=== PATIENT | female | born 1965 | race Caucasian/White ===

== ENCOUNTER 2016-11-16 13:55 | Emergency (ER) | payer MEDICARE ==
--- NOTE | 2016-11-16 15:03 | ER Document Report ---
ED Medical Screen (RME) - General Chief Complaint: Back Pain Stated Complaint: BACK PAIN Time Seen by Provider: 11/16/16 14:51 Mode of Arrival: Medic Information source: Patient Notes: Presents complaining of nausea and low back pain. Patient states that she suspects that she has a worsening UTI that is starting to affect her kidneys. Patient states that she was recently discharged from the hospital in [place] last week for UTI in addition to C. difficile. Patient states that she has been on Flagyl in the past and has had a fecal transplant in attempt to resolve her C. difficile. Patient states that she has had frequent problems with UTIs that are difficult to treat and states that her last UTI was only susceptible to 2 different antibiotics. Patient also reports that she has frequent hypokalemia and hypomagnesemia, and suspects this today. Patient does report increased peripheral edema. Patient has currently been taking vancomycin hx: Diabetes, CHF, DVT, PE TRAVEL OUTSIDE OF THE [place] IN LAST 30 DAYS: No - Related Data Allergies/Adverse Reactions: naproxen [From Aleve] Allergy (Verified 11/16/16 14:08) Penicillins Allergy (Verified 11/16/16 14:08) Past Medical History Renal/ Medical History: Denies: Hx Peritoneal Dialysis Physical Exam - Vital signs Vitals: Temp Pulse Resp BP Pulse Ox 98.9 F 103 H 20 151/79 H 96 11/16/16 14:06 11/16/16 14:06 11/16/16 14:06 11/16/16 14:06 11/16/16 14:06 - Back Back: CVA tenderness - bilat Course - Vital Signs Vital signs: Temp Pulse Resp BP Pulse Ox 98.9 F 103 H 20 151/79 H 96 11/16/16 14:06 11/16/16 14:06 11/16/16 14:06 11/16/16 14:06 11/16/16 14:06
[2016-11-16 16:11] LABS: ABSOLUTE BASOPHILS # (AUTO) 0.1 10^3/uL (0.0-0.2); ABSOLUTE EOSINOPHILS # (AUTO) 0.1 10^3/uL (0.0-0.6); ABSOLUTE LYMPHOCYTES (AUTO) 1.1 10^3/uL (0.5-4.7); ABSOLUTE MONOCYTES (AUTO) 0.4 10^3/uL (0.1-1.4); ABSOLUTE NEUT (AUTO) 4.5 10^3/uL (1.7-8.2); BASOPHILS % (AUTO) 1.3 % (0-2); EOSINOPHILS % (AUTO) 0.9 % (0-6); HEMATOCRIT 32.8 % (36.0-47.0); HEMOGLOBIN 10.5 g/dL (12.0-15.5); HGB HCT DIFFERENCE -1.3; LYMPHOCYTES % (AUTO) 17.7 % (13-45); MEAN CORPUSCULAR HEMOGLOBIN 25.5 pg (27.0-33.4); MEAN CORPUSCULAR HGB CONC 31.9 g/dL (32.0-36.0); MEAN CORPUSCULAR VOLUME 80 fl (80-97); RED CELL DISTRIBUTION WIDTH 16.7 % (11.5-14.0); SEGMENTED NEUTROPHILS % (AUTO) 73.1 % (42-78); WHITE BLOOD COUNT 6.2 10^3/uL (4.0-10.5)
[2016-11-16 16:26] LABS: ALANINE AMINOTRANSFERASE 22 U/L (9-52); ALBUMIN 3.2 g/dL (3.5-5.0); ALKALINE PHOSPHATASE 133 U/L (38-126); ANION GAP 12 (5-19); ASPARTATE AMINO TRANSFERASE 12 U/L (14-36); BILIRUBIN,DIRECT 0.4 mg/dL (0.0-0.4); BILIRUBIN,TOTAL 0.6 mg/dL (0.2-1.3); BLOOD UREA NITROGEN 22 mg/dL (7-20); CALCIUM 8.9 mg/dL (8.4-10.2); CARBON DIOXIDE 23 mmol/L (22-30); CHLORIDE 110 mmol/L (98-107); CREATININE RESULT 1.51 mg/dL (0.52-1.25); GLUCOSE 152 mg/dL (75-110); MAGNESIUM 1.6 mg/dL (1.6-2.3); TOTAL PROTEIN 6.2 g/dL (6.3-8.2)
[2016-11-16 16:30] LABS: POTASSIUM 2.7 mmol/L (3.6-5.0)
[2016-11-16] MEDS ORDERED: LEVOFLOXACIN RTU 750 MG/D5W 150 ML IV ONE (17:27)
[2016-11-16] MEDS ORDERED: POTASSIUM CHLORIDE 10 MEQ TABLET.SA PO ONE (17:28)
[2016-11-16] MEDS ORDERED: ONDANSETRON 4 MG TAB.RAPDIS PO ONE (18:25)
[2016-11-16] MEDS ORDERED: OXYCODONE-ACETAMINOPHEN 5-325 MG TABLET PO ONE (18:25)
[2016-11-16 18:42] LABS: APPEARANCE,URINE SLIGHTLY-CLOUDY; BILIRUBIN,URINE NEGATIVE (NEGATIVE); GLUCOSE, URINE 150 mg/dL (NEGATIVE); KETONES,URINE NEGATIVE (NEGATIVE); LEUKOCYTE ESTERASE,URINE NEGATIVE (NEGATIVE); NITRITE,URINE POSITIVE (NEGATIVE); PROTEIN,URINE >=500 mg/dL (NEGATIVE); URINE SPECIFIC GRAVITY 1.025; UROBILINOGEN,URINE NEGATIVE mg/dL (<2.0)
--- NOTE | 2016-11-16 19:48 | ER Document Report ---
ED General - General Chief Complaint: Back Pain Stated Complaint: BACK PAIN Time Seen by Provider: 11/16/16 14:51 Mode of Arrival: Ambulatory Information source: Patient TRAVEL OUTSIDE OF THE [place] IN LAST 30 DAYS: No - HPI Onset: This morning Onset/Duration: Gradual Quality of pain: Achy, Dull Severity: Moderate Associated symptoms: Chills, Nausea. denies: Diarrhea, Vomiting, Shortness of breath Exacerbated by: Denies Relieved by: Denies Similar symptoms previously: Yes - TYPICAL, W/ FREQUENT UTI's Recently seen / treated by doctor: No Notes: RECENTLY MOVED TO [facility] [place], HAS NO LOCAL PCP. - Related Data Allergies/Adverse Reactions: naproxen [From Aleve] Allergy (Verified 11/16/16 14:08) Penicillins Allergy (Verified 11/16/16 14:08) Past Medical History - General Information source: Patient - Social History Smoking Status: Unknown if Ever Smoked Cigarette use (# per day): No Chew tobacco use (# tins/day): No Frequency of alcohol use: None Drug Abuse: None Lives with: Family Family History: Reviewed & Not Pertinent Patient has suicidal ideation: No Patient has homicidal ideation: No - Past Medical History Cardiac Medical History: Reports: Hx Congestive Heart Failure Endocrine Medical History: Reports: Hx Diabetes Mellitus Type 1 Renal/ Medical History: Reports: None. Denies: Hx Peritoneal Dialysis Malignancy Medical History: Reports: None GI Medical History: Reports: None Musculoskeltal Medical History: Reports None Psychiatric Medical History: Reports: None Past Surgical History: Reports: Hx Orthopedic Surgery Review of Systems - Review of Systems Constitutional: See HPI EENT: No symptoms reported Cardiovascular: Edema Respiratory: denies: Cough, Short of breath Gastrointestinal: See HPI Genitourinary: See HPI Female Genitourinary: See HPI Musculoskeletal: Back pain Skin: No symptoms reported Neurological/Psychological: No symptoms reported Physical Exam - Vital signs Vitals: Temp Pulse Resp BP Pulse Ox 98.9 F 103 H 20 151/79 H 96 11/16/16 14:06 11/16/16 14:06 11/16/16 14:06 11/16/16 14:06 11/16/16 14:06 Interpretation: Hypertensive, Tachycardic. No: Tachypneic, Febrile - General General appearance: Appears well, Alert In distress: None - HEENT Head: Normocephalic Eyes: Normal Conjunctiva: Normal Ears: Normal Nasal: Normal Mouth/Lips: Normal Mucous membranes: Normal Pharynx: Normal Neck: Normal - Respiratory Respiratory status: No respiratory distress Breath sounds: Normal - Cardiovascular Rhythm: Regular Murmur: Yes Systolic murmur grade 1-6: 2 Friction rub: No Fifi's crunch: No Gallop: None auscultated - Abdominal Inspection: Obese Bowel sounds: Normal - Back Back: Normal, Tender - MILD, LUMBAR PARASPINOUS, BILAT., MORE ON RIGHT - Extremities General upper extremity: Normal inspection General lower extremity: Edema - 2+ BILAT. - Neurological Neuro grossly intact: Yes Cognition: Normal Orientation: AAOx4 - Psychological Associated symptoms: Normal affect, Normal mood - Skin Skin Temperature: Warm Skin Moisture: Dry Skin Color: Normal Skin Turgor: Elastic Course - Vital Signs Vital signs: Temp Pulse Resp BP Pulse Ox 98.9 F 103 H 20 151/79 H 96 11/16/16 14:06 11/16/16 14:06 11/16/16 14:06 11/16/16 14:06 11/16/16 14:06 - Laboratory Result Diagrams: 11/16/16 15:55 11/16/16 15:55 Laboratory results interpreted by me: 11/16/16 11/16/16 11/16/16 15:55 15:55 15:55 Hgb 10.5 L Hct 32.8 L MCH 25.5 L MCHC 31.9 L RDW 16.7 H Potassium 2.7 L* Chloride 110 H BUN 22 H Creatinine 1.51 H Est GFR ( Amer) 44 L Est GFR (Non-Af Amer) 36 L Glucose 152 H AST 12 L Alkaline Phosphatase 133 H NT-Pro-B Natriuret Pep 09384 H Total Protein 6.2 L Albumin 3.2 L Urine Protein Urine Glucose (UA) Urine Blood Urine Nitrite 11/16/16 17:36 Hgb Hct MCH MCHC RDW Potassium Chloride BUN Creatinine Est GFR ( Amer) Est GFR (Non-Af Amer) Glucose AST Alkaline Phosphatase NT-Pro-B Natriuret Pep Total Protein Albumin Urine Protein >=500 H Urine Glucose (UA) 150 H Urine Blood SMALL H Urine Nitrite POSITIVE H Discharge - Discharge Clinical Impression: Edema of both legs, Hypokalemia Urinary tract infection Qualifiers: Urinary tract infection type: acute cystitis Hematuria presence: without hematuria Qualified Code(s): N30.00 - Acute cystitis without hematuria Back pain Qualifiers: Back pain location: low back pain Chronicity: acute Back pain laterality: right Sciatica presence: without sciatica Qualified Code(s): M54.5 - Low back pain Condition: Stable Disposition: HOME, SELF-CARE Instructions: Urinary Tract Infection ([facility]), Levofloxacin, Dependent Edema ([facility] ), Hypokalemia ([facility]) Additional Instructions: MEDS DIRECTED. KEEP YOUR FEET AND LEGS ELEVATED MUCH POSSIBLE. AVOID ALL SALT IN YOUR DIET. FOLLOW UP WITH LOCAL PRIMARY CARE PROVIDER FOR ON-GOING ROUTINE CARE. Prescriptions: Levofloxacin [Levaquin 500 mg Tablet] 500 mg PO DAILY #10 tablet Potassium Chloride [Klor-Con 10 Meq Tablet.sa] 10 meq PO Q12 #20 tablet.sa Referrals: ALAYNA LANDA MD [ACTIVE STAFF] - Follow up as needed WILLIAM JIMENEZ MD [ACTIVE STAFF] - Follow up as needed LAWRENCE HOLGUIN MD [ACTIVE STAFF] - Follow up as needed
[2016-11-16 21:52] VITALS: BP 128/79
== END 2016-11-16 21:29 | disposition home or self-care (01) ==
LOC: ER 13:55
DX: N30.00 Acute cystitis without hematuria (principal); R60.0 Localized edema; E87.6 Hypokalemia; M54.9 Dorsalgia, unspecified; R68.83 Chills (without fever); R11.0 Nausea; R01.1 Cardiac murmur, unspecified; E10.9 Type 1 diabetes mellitus without complications; Z88.0 Allergy status to penicillin; Z88.8 Allergy status to other drugs, medicaments and biological substances
CPT/HCPCS: 99283; 51701; 96365; 96366; 36415; 87040; 87086; 83735; 85025; 87088; 80053; 81001; 87186; 83880; A9270 ×3; J1956; S0119